=== PATIENT | female | born 1995 | race American Indian/Alaskan Native ===

== ENCOUNTER 2017-09-02 12:40 | Outpatient (CLI) | payer MEDICAID ==
--- NOTE | 2017-09-02 16:11 | Cat Scan Report ---
FINAL REPORT EXAM: CT HEAD/BRAIN W CON HISTORY: HYPERPROLACTINEMIA TECHNIQUE: CT of the Head without IV contrast. PRIORS: None currently available. FINDINGS: Without the benefit of MRI and or CT coronal and sagittal reconstructed imaging the pituitary gland and sella cannot be adequately evaluated. No abnormal enhancing lesions excluding the region of the sella. There is no evidence for acute ischemia. There is no midline shift. There is no hydrocephalus. There is no mass. Age appropriate graham-white matter attenuation is noted. There is no calvarial fracture. The temporal bones demonstrate aerated mastoid air cells. The middle ears appear unremarkable. Paranasal sinuses are unremarkable. Globes are intact. IMPRESSION: Without the benefit of MRI and or CT coronal and sagittal reconstructed imaging the pituitary gland and sella cannot be adequately evaluated. Otherwise, no acute intracranial findings.
== END 2017-09-02 12:41 | disposition home or self-care (01) ==
LOC: CT 12:40
PROVIDERS: ATTEND Obstetrics & Gynecology
DX: E22.1 Hyperprolactinemia (principal)
CPT/HCPCS: 70460; Q9967

== ENCOUNTER 2017-09-19 13:11 | Outpatient (CLI) | payer MEDICAID ==
--- NOTE | 2017-09-19 14:41 | Fluoroscopy Report ---
FLUOROSCOPY HYSTEROSALPINGOGRAM History: Infertility. Description of procedure: Informed consent was obtained. Sterile technique was utilized. 70 fluoroscopic images were captured. Using sterile technique, a speculum was utilized to visualize the cervix. The cervix was cleaned 3 times with Betadine solution. A 5 which catheter was inserted into the cervical canal and secured by balloon inflation. Approximately 10 cc of water-soluble contrast was injected into the endometrial cavity. The endometrial cavity appears normal. There is no evidence for filling defect, congenital malformation or synechia. The fallopian tubes are widely patent bilaterally and demonstrate normal morphology. Spillage of the contrast agent into the pelvis was witnessed bilaterally. The patient tolerated the procedure without difficulty. Impression: Normal exam. The fallopian tubules have normal morphology and are patent.
== END 2017-09-19 13:12 | disposition home or self-care (01) ==
LOC: FLUORO 13:11
PROVIDERS: ATTEND Advanced Practice Midwife
DX: N97.9 Female infertility, unspecified (principal); E22.1 Hyperprolactinemia
CPT/HCPCS: 58340; 74740; Q9967